=== PATIENT | female | born 1995 | race Caucasian/White ===

== ENCOUNTER 2022-03-06 12:28 | Observation (INO) | payer OTHER ==
[~2022-03-06] VITALS: Ht 170.2 cm; Wt 75.7 kg
[2022-03-06 13:14] VITALS: BP 106/55
== END 2022-03-06 14:48 | disposition home or self-care (01) ==
LOC: MLD 12:28
PROVIDERS: ADMIT Obstetrics & Gynecology; ATTEND Obstetrics & Gynecology
DX: O62.9 Abnormality of forces of labor, unspecified (principal); Z3A.38 38 weeks gestation of pregnancy
CPT/HCPCS: 59025; 76819; G0378; G0379; Q0092